=== PATIENT | female | born 1940 | race Caucasian/White ===

== ENCOUNTER → 2017-04-14 | Outpatient (CLI) | payer MEDICARE ==
--- NOTE | 2017-04-17 13:10 | CARDEX ---
CARDIOPULMONARY EXERCISE REPORT Ms. Raygoza performed a maximal pulmonary stress test utilizing a step-exercise protocol monitoring several cardiopulmonary parameters including gas exchange. Her overall aerobic performance is normal at 97%. Her pulmonary response was slightly abnormal in that she exhausted her ventilatory reserve but she had no oxygen de-saturation. Her pulmonary vascular capacitance was normal and although she was short of breath she recovered quickly. Her cardiovascular response was essentially normal having achieved 85% of her predicted maximum heart rate with a normal peak O2 pulse, an indirect indicator of stroke volume. She had no significant chest pain or light-headedness. She did have a drop in her end-tidal C02 of unclear significance in light of the other parameters being fairly normal. Her blood pressure response was normal. She had no identifiable arrhythmia and again she recovered quickly at the end of the study. IMPRESSION: In summary, Ms. Raygoza has a normal aerobic capacity, although she does develop dyspnea and does exhaust her ventilatory reserve. She has no oxygen de-saturation and no obvious cardiopulmonary dysfunction.
== END ==
LOC: HRSP 12:59
PROVIDERS: ATTEND Internal Medicine
DX: R06.02 Shortness of breath (principal)
CPT/HCPCS: 94621